=== PATIENT | female | born 1955 | race Caucasian/White ===

== ENCOUNTER 2022-02-14 17:42 | Emergency (ER) | payer OTHER ==
[2022-02-14 18:15] VITALS: BP 180/99; PULSE 112; TEMP 98; BMI 35.2
[2022-02-14] MEDS ORDERED: MAGNESIUM CITRATE 300 ML BOTTLE PO ONE ×2 (21:04→21:05)
== END 2022-02-14 21:12 | disposition home or self-care (01) ==
LOC: FER 17:42
DX: K59.00 Constipation, unspecified (principal)
CPT/HCPCS: 99283-25